=== PATIENT | male | born 1950 | race Caucasian/White ===

== ENCOUNTER → 2020-04-02 08:09 | Outpatient (CLI) | payer OTHER ==
[2015-12-31 12:22] VITALS: BMI 31.0
[~2020-04-02 08:09] MED LIST: BETAMETHASONE DIPROPIONATE; CITRATE OF MAG300 ML; FISH OIL 1,2001 CAP PO; FOLATE; IRON; PROBIOTIC1 EAC1 PO; VITAMIN D5000 UNIT PO; [UNRECOGNIZED DRUG - OTHER]
== END | disposition home or self-care (01) ==
LOC: D.CT 08:09
PROVIDERS: ATTEND Family Medicine
DX: I70.213 Atherosclerosis of native arteries of extremities with intermittent claudication, bilateral legs (principal)